=== PATIENT | female | born 1935 | race Caucasian/White ===

== ENCOUNTER → 2016-09-23 | Outpatient (CLI) | payer MEDICARE, BC ==
[~2016-09-23] MED LIST: ACET325T14 PO; ACID1TAB7 PO; ALBU2.5V11 NPPB; ALBU8.5H3 INH; ALPR0.25 PO; ASPI-515 PO; ATOR40TA PO; BUSP5TAB2 PO; CEFD300C37 PO; DIPH25CA61 PO; DOXY100C PO; DOXY100T PO; FAMO-79 PO; FAMO40TA4 PO; FLUT16SP NAS; FLUT1DIS3 INH; FLUT1DIS5 IH; GABA300C10 PO; HYDR-3240 PO; HYDR-3307 PO; IBUP100T9 PO; METH750T87 PO; NYST5000 PO; ONDA4SOL2 IV; PIPE3.378 IVPB; PRED20TA PO; RIVA15TA PO; RIVA20TA PO; ROSU20TA PO; SENN-31 PO; TRAM50TA2 PO; VANC1FRO IVPB
== END | disposition home or self-care (01) ==
LOC: PETCFH 13:11
PROVIDERS: ATTEND Nurse Practitioner
DX: J43.2 Centrilobular emphysema (principal); R91.1 Solitary pulmonary nodule; J98.4 Other disorders of lung
CPT/HCPCS: 78815; A9552

== ENCOUNTER 2017-04-22 09:10 | Inpatient (IN) | payer MEDICARE, BC ==
[~2017-04-22] VITALS: Ht 149.9 cm; Wt 55.9 kg
[~2017-04-22 09:10] MED LIST changes: -ALBU8.5H3 INH; +ALBU8.5H8 INH
[2017-04-22] MEDS ORDERED: APIX5TAB PO (10:13)
[2017-04-22] MEDS ORDERED: LORA10TA62 PO (10:13)
[2017-04-22] MEDS ORDERED: SODIUM CHLORIDE FLUSH 10ML SYR IVF ONE (10:30)
[2017-04-22 10:50] LABS: BASOPHILS # (AUTO) 0.14 x10^3/uL (0-0.1); BASOPHILS % (AUTO) 1 % (0-1); EOSINOPHILS # (AUTO) 0.23 x10^3/uL (0-0.4); EOSINOPHILS % (AUTO) 2 % (1-7); LYMPHOCYTES # (AUTO) 1.86 x10^3/uL (1-3.4); LYMPHOCYTES % (AUTO) 15 % (22-44); MD NO; MEAN CORPUSCULAR HEMOGLOBIN 22.7 pg (27.0-34.8); MEAN CORPUSCULAR HGB CONC 31.1 g/dL (32.4-35.8); MEAN PLATELET VOLUME 9.3 fL (7.4-10.4); MONOCYTES # (AUTO) 1.02 x10^3/uL (0.2-0.8); MONOCYTES % (AUTO) 8 % (2-9); NEUTROPHILS # (AUTO) 9.24 x10^3/uL (1.8-6.8); NEUTROPHILS % (AUTO) 74 % (42-75); PLATELET COUNT 356 x10^3/uL (130-400); RED BLOOD COUNT 5.62 x10^6/uL (3.82-5.3)
[2017-04-22 11:02] LABS: ALBUMIN 2.9 g/dL (3.4-5.0); ANION GAP 12 mmol/L (5-15); CALCIUM 9.7 mg/dL (8.5-10.1); CHLORIDE 106 mmol/L (98-107); CREATININE 1.21 mg/dL (0.55-1.02); D-DIMER 2.59 ug/mlFEU (0.00-0.52); INTERNATIONAL NORMALIZED RATIO 2.21 (0.93-1.1); PROTHROMBIN TIME 22.4 Seconds (9.6-11.5)
[2017-04-22] MEDS ORDERED: OMNIPAQUE 350 MG/ML, 100ML BOTTLE ONE (11:49)
[2017-04-22] MEDS ORDERED: SODIUM CHLORIDE FLUSH 10ML SYR IVF PRN (13:30)
[2017-04-22] MEDS ORDERED: NS + 20MEQ KCL 1,000 ML IV SCH (13:43)
[2017-04-22] MEDS ORDERED: DOCUSATE 100 MG CAPSULE PO PRN (14:00)
[2017-04-22] MEDS ORDERED: POLYETHYLENE GLYCOL 17 GM PACKET PO PRN (14:00)
[2017-04-22] MEDS ORDERED: FLUTICASONE NASAL SPRAY 16GM NAS PRN (14:00)
[2017-04-22] MEDS ORDERED: GUAIFENESIN/DM 200-20MG, 10ML UDC PO PRN (14:00)
[2017-04-22] MEDS ORDERED: ALBUTEROL HFA 90 MCG/SPRAY HOMEINH PRN (14:00)
[2017-04-22] MEDS ORDERED: ONDANSETRON 2MG/ML, 2ML IVPush PRN (14:00)
[2017-04-22] MEDS ORDERED: ALBUTEROL/IPRATROPIUM 2.5MG/0.5MG, 3 ML ONE (15:14)
[2017-04-22] MEDS ORDERED: ALBUTEROL/IPRATROPIUM 2.5MG/0.5MG, 3 ML NPPB PRN (15:30)
[2017-04-22 15:33] VITALS: BP 132/77
[2017-04-22] MEDS: methylPREDNISolone SOD SUCC 125 MG/2 ML IVPush SCH (16:06)
[2017-04-22 18:46] VITALS: BP 125/81
[2017-04-22] MEDS: CEFTRIAXONE PMX 1GM/50ML 50 ML IV SCH (19:32)
[2017-04-22] MEDS: ALBUTEROL/IPRATROPIUM 2.5MG/0.5MG, 3 ML NPPB SCH (20:19)
[2017-04-22] MEDS: SALMETEROL IH SCH (20:58)
[2017-04-22] MEDS: APIXABAN 5 MG TABLET PO SCH (20:58)
[2017-04-22] MEDS: DOXYCYCLINE 100 MG in DEXTROSE 5% 250 ML IV SCH ×2 (20:58→21:30)
[2017-04-22] MEDS: FLUTICASONE IH SCH (20:58)
[2017-04-23 00:30] VITALS: BP 146/81
[2017-04-23] MEDS: methylPREDNISolone SOD SUCC 125 MG/2 ML IVPush SCH ×3 (00:36→17:06)
[2017-04-23 06:10] LABS: CHLORIDE 105 mmol/L (98-107)
[2017-04-23 06:15] LABS: ANION GAP 8 mmol/L (5-15); CALCIUM 9.1 mg/dL (8.5-10.1); CREATININE 0.94 mg/dL (0.55-1.02)
[2017-04-23 06:35] VITALS: BP 117/61
[2017-04-23] MEDS: ALBUTEROL/IPRATROPIUM 2.5MG/0.5MG, 3 ML NPPB SCH ×2 (06:40→10:20)
[2017-04-23] MEDS ORDERED: LORATADINE 10 MG TABLET PO PRN (09:00)
[2017-04-23] MEDS: FAMOTIDINE 40 MG TABLET PO SCH (09:09)
[2017-04-23] MEDS: APIXABAN 5 MG TABLET PO SCH ×2 (09:09→21:18)
[2017-04-23] MEDS: SENNA/DOCUSATE TABLET PO SCH (09:12)
[2017-04-23] MEDS: DOXYCYCLINE 100 MG in DEXTROSE 5% 250 ML IV SCH ×2 (10:09→21:18)
[2017-04-23 12:09] VITALS: BP 119/79
[2017-04-23] MEDS: FLUTICASONE IH SCH (12:10)
[2017-04-23] MEDS: SALMETEROL IH SCH (12:10)
[2017-04-23] MEDS ORDERED: ACETAMINOPHEN 325 MG TABLET PO ONE (13:30)
[2017-04-23] MEDS ORDERED: DIPHENHYDRAMINE 25 MG CAPSULE PO ONE (13:30)
[2017-04-23] MEDS: FLUTICASONE/VILANTEROL 200-25MCG/INH INH SCH (13:52)
[2017-04-23] MEDS: ALBUTEROL SULFATE 2.5 MG/3 ML NPPB SCH ×2 (14:50→20:20)
[2017-04-23] MEDS: LORazepam 1MG TABLET PO PRN (15:37)
[2017-04-23] MEDS: CEFTRIAXONE PMX 1GM/50ML 50 ML IV SCH (17:06)
[2017-04-23 19:23] VITALS: BP 123/79
[2017-04-23] MEDS ORDERED: DIPHENHYDRAMINE 50 MG CAPSULE PO ONE (23:00)
[2017-04-24] MEDS: methylPREDNISolone SOD SUCC 125 MG/2 ML IVPush SCH ×3 (00:54→16:21)
[2017-04-24 01:28] VITALS: BP 125/69
[2017-04-24 06:35] VITALS: BP 161/89
[2017-04-24] MEDS: ALBUTEROL SULFATE 2.5 MG/3 ML NPPB SCH ×2 (07:09→11:33)
[2017-04-24] MEDS ORDERED: FLUTICASONE/VILANTEROL 200-25MCG/INH INH SCH (09:00)
[2017-04-24] MEDS: DOXYCYCLINE 100 MG in DEXTROSE 5% 250 ML IV SCH (09:00)
[2017-04-24] MEDS: FAMOTIDINE 40 MG TABLET PO SCH (09:03)
[2017-04-24] MEDS: APIXABAN 5 MG TABLET PO SCH ×2 (09:03→20:17)
[2017-04-24] MEDS: FLUTICASONE/VILANTEROL 200-25MCG/INH INH SCH (09:03)
[2017-04-24] MEDS: SENNA/DOCUSATE TABLET PO SCH (09:04)
[2017-04-24] MEDS ORDERED: BUSPIRONE 5 MG TABLET PO PRN (10:30)
[2017-04-24] MEDS: AZITHROMYCIN 500 MG TABLET PO SCH (11:28)
[2017-04-24 12:18] VITALS: BP 126/81
[2017-04-24] MEDS: CEFTRIAXONE PMX 1GM/50ML 50 ML IV SCH (16:21)
[2017-04-24 20:24] VITALS: BP 115/79
[2017-04-24] MEDS: DIPHENHYDRAMINE 50 MG CAPSULE PO PRN (22:12)
[2017-04-25 00:56] VITALS: BP 125/74
[2017-04-25] MEDS: methylPREDNISolone SOD SUCC 125 MG/2 ML IVPush SCH ×3 (01:39→17:14)
[2017-04-25 07:53] VITALS: BP 143/93
[2017-04-25] MEDS: APIXABAN 5 MG TABLET PO SCH ×2 (09:14→20:12)
[2017-04-25] MEDS: SENNA/DOCUSATE TABLET PO SCH (09:14)
[2017-04-25] MEDS: FLUTICASONE/VILANTEROL 200-25MCG/INH INH SCH (09:14)
[2017-04-25] MEDS: FAMOTIDINE 40 MG TABLET PO SCH (09:14)
[2017-04-25] MEDS: AZITHROMYCIN 500 MG TABLET PO SCH (09:14)
[2017-04-25] MEDS: DIPHENHYDRAMINE 50 MG CAPSULE PO PRN (10:56)
[2017-04-25 13:34] VITALS: BP 151/91
[2017-04-25] MEDS ORDERED: ALBUTEROL SULFATE 2.5 MG/3 ML NPPB PRN (15:00)
[2017-04-25] MEDS: CEFTRIAXONE PMX 1GM/50ML 50 ML IV SCH (17:14)
[2017-04-25 18:28] VITALS: BP 135/86
[2017-04-26 00:26] VITALS: BP 111/73
[2017-04-26] MEDS: methylPREDNISolone SOD SUCC 125 MG/2 ML IVPush SCH ×3 (00:47→17:44)
[2017-04-26 06:40] VITALS: BP 131/86
[2017-04-26] MEDS: AZITHROMYCIN 500 MG TABLET PO SCH (09:16)
[2017-04-26] MEDS: SENNA/DOCUSATE TABLET PO SCH (09:16)
[2017-04-26] MEDS: APIXABAN 5 MG TABLET PO SCH ×2 (09:16→20:51)
[2017-04-26] MEDS: FAMOTIDINE 40 MG TABLET PO SCH (09:16)
[2017-04-26] MEDS: FLUTICASONE/VILANTEROL 200-25MCG/INH INH SCH (09:16)
[2017-04-26 11:27] LABS: MICROSCOPIC AUTO
[2017-04-26 11:30] LABS: CULTURE INDICATED? NO
[2017-04-26 12:05] VITALS: BP 118/67
[2017-04-26] MEDS: DIPHENHYDRAMINE 50 MG CAPSULE PO PRN (16:25)
[2017-04-26] MEDS: CEFTRIAXONE PMX 1GM/50ML 50 ML IV SCH (16:25)
[2017-04-26 19:19] VITALS: BP 153/98
[2017-04-27 02:26] VITALS: BP 135/84
[2017-04-27] MEDS: methylPREDNISolone SOD SUCC 125 MG/2 ML IVPush SCH ×2 (02:43→09:36)
[2017-04-27 05:26] LABS: MEAN CORPUSCULAR HEMOGLOBIN 22.9 pg (27.0-34.8); MEAN CORPUSCULAR HGB CONC 31.6 g/dL (32.4-35.8); MEAN CORPUSCULAR VOLUME 72.4 fL (80-100); MEAN PLATELET VOLUME 9.8 fL (7.4-10.4); PLATELET COUNT 266 x10^3/uL (130-400); RED BLOOD COUNT 5.23 x10^6/uL (3.82-5.3); RED CELL DISTRIBUTION WIDTH 19.3 % (9.6-15.2)
[2017-04-27 05:39] LABS: CALCIUM 9.1 mg/dL (8.5-10.1); CREATININE 0.91 mg/dL (0.55-1.02)
[2017-04-27 05:48] LABS: ANION GAP 7 mmol/L (5-15); CHLORIDE 107 mmol/L (98-107)
[2017-04-27 05:51] LABS: ANISOCYTOSIS 1+; BASOPHILS % (AUTO) 0 % (0-1); EOSINOPHILS % (AUTO) 0 % (1-7); HYPOCHROMIA 2+; LYMPHOCYTES # (AUTO) 0.44 x10^3/uL (1-3.4); LYMPHOCYTES % (AUTO) 3 % (22-44); MD MORPH REVIEW ONLY; MICROCYTOSIS 2+; MONOCYTES # (AUTO) 0.74 x10^3/uL (0.2-0.8); MONOCYTES % (AUTO) 5 % (2-9); NEUTROPHILS % (AUTO) 93 % (42-75); OVALOCYTES 2+
[2017-04-27 05:53] LABS: <PLATELET ESTIMATE> ADEQUATE; <PLT MORPHOLOGY> NORMAL PLT MORPH
[2017-04-27 06:48] VITALS: BP 158/99
[2017-04-27] MEDS: FLUTICASONE/VILANTEROL 200-25MCG/INH INH SCH (09:33)
[2017-04-27] MEDS: SENNA/DOCUSATE TABLET PO SCH (09:33)
[2017-04-27] MEDS: AZITHROMYCIN 500 MG TABLET PO SCH (09:34)
[2017-04-27] MEDS: APIXABAN 5 MG TABLET PO SCH ×2 (09:36→21:21)
[2017-04-27] MEDS: FAMOTIDINE 40 MG TABLET PO SCH (09:36)
[2017-04-27 12:23] VITALS: BP 150/87
[2017-04-27 20:15] VITALS: BP 145/83
[2017-04-28 01:23] VITALS: BP 154/97
[2017-04-28 05:22] LABS: BASOPHILS % (AUTO) 0 % (0-1); EOSINOPHILS # (AUTO) 0.01 x10^3/uL (0-0.4); EOSINOPHILS % (AUTO) 0 % (1-7); LYMPHOCYTES # (AUTO) 0.94 x10^3/uL (1-3.4); LYMPHOCYTES % (AUTO) 5 % (22-44); MD NO; MEAN CORPUSCULAR HEMOGLOBIN 22.5 pg (27.0-34.8); MEAN CORPUSCULAR HGB CONC 31.2 g/dL (32.4-35.8); MEAN CORPUSCULAR VOLUME 72.2 fL (80-100); MEAN PLATELET VOLUME 9.6 fL (7.4-10.4); MONOCYTES # (AUTO) 1.39 x10^3/uL (0.2-0.8); MONOCYTES % (AUTO) 7 % (2-9); NEUTROPHILS % (AUTO) 88 % (42-75); PLATELET COUNT 304 x10^3/uL (130-400); RED CELL DISTRIBUTION WIDTH 19.3 % (9.6-15.2)
[2017-04-28 05:34] LABS: CHLORIDE 108 mmol/L (98-107)
[2017-04-28 05:40] LABS: ANION GAP 6 mmol/L (5-15); CALCIUM 8.9 mg/dL (8.5-10.1); CREATININE 0.77 mg/dL (0.55-1.02)
[2017-04-28 06:49] VITALS: BP 142/90
[2017-04-28] MEDS: predniSONE 50MG TABLET PO SCH (07:20)
[2017-04-28] MEDS: FAMOTIDINE 40 MG TABLET PO SCH (08:57)
[2017-04-28] MEDS: SENNA/DOCUSATE TABLET PO SCH (08:57)
[2017-04-28] MEDS: APIXABAN 5 MG TABLET PO SCH ×2 (08:57→19:49)
[2017-04-28] MEDS: FLUTICASONE/VILANTEROL 200-25MCG/INH INH SCH (08:57)
[2017-04-28] MEDS ORDERED: AZITHROMYCIN 500 MG TABLET PO SCH (09:00)
[2017-04-28 10:06] LABS: ALANINE AMINOTRANSFERASE 119 U/L (12-78); ALBUMIN 3.1 g/dL (3.4-5.0); ANION GAP 7 mmol/L (5-15); CALCIUM 8.9 mg/dL (8.5-10.1); CHLORIDE 107 mmol/L (98-107); CREATININE 0.81 mg/dL (0.55-1.02)
[2017-04-28 10:09] LABS: ALKALINE PHOSPHATASE 161 U/L (45-117); BILIRUBIN,TOTAL 0.9 mg/dL (0.2-1.0); TOTAL PROTEIN 6.7 g/dL (6.4-8.2)
[2017-04-28 14:13] VITALS: BP 113/76
[2017-04-28] MEDS: CEFTRIAXONE PMX 1GM/50ML 50 ML IV SCH (18:24)
[2017-04-28] MEDS: METRONIDAZOLE PMX 500MG/100ML 100 ML IV SCH (19:49)
[2017-04-28] MEDS: LORazepam 1MG TABLET PO PRN (19:50)
[2017-04-28 21:23] VITALS: BP 138/90
[2017-04-29 03:49] VITALS: BP 150/97
[2017-04-29] MEDS: LORazepam 1MG TABLET PO PRN (04:14)
[2017-04-29] MEDS: METRONIDAZOLE PMX 500MG/100ML 100 ML IV SCH ×3 (04:14→20:07)
[2017-04-29 06:38] VITALS: BP 164/98
[2017-04-29] MEDS: FAMOTIDINE 40 MG TABLET PO SCH (09:04)
[2017-04-29] MEDS: APIXABAN 5 MG TABLET PO SCH (09:04)
[2017-04-29] MEDS: SENNA/DOCUSATE TABLET PO SCH (09:04)
[2017-04-29] MEDS: predniSONE 50MG TABLET PO SCH (09:04)
[2017-04-29] MEDS: FLUTICASONE/VILANTEROL 200-25MCG/INH INH SCH (09:05)
[2017-04-29] MEDS ORDERED: hydrALAzine 20 MG/ML, 1ML IV PRN (12:30)
[2017-04-29 12:41] VITALS: BP 115/78
[2017-04-29 17:55] LABS: TUBERCULIN 48 HOUR READ 0 mm (< 5)
[2017-04-29] MEDS: CEFTRIAXONE PMX 1GM/50ML 50 ML IV SCH (18:02)
[2017-04-29 19:49] VITALS: BP 133/80
[2017-04-30 00:47] VITALS: BP 146/89
[2017-04-30] MEDS: METRONIDAZOLE PMX 500MG/100ML 100 ML IV SCH (04:02)
[2017-04-30 05:49] LABS: MEAN CORPUSCULAR HEMOGLOBIN 22.4 pg (27.0-34.8); MEAN CORPUSCULAR HGB CONC 31.3 g/dL (32.4-35.8); MEAN CORPUSCULAR VOLUME 71.7 fL (80-100); MEAN PLATELET VOLUME 9.6 fL (7.4-10.4); PLATELET COUNT 320 x10^3/uL (130-400); RED BLOOD COUNT 5.36 x10^6/uL (3.82-5.3); RED CELL DISTRIBUTION WIDTH 19.2 % (9.6-15.2)
[2017-04-30 06:07] LABS: CHLORIDE 108 mmol/L (98-107)
[2017-04-30 06:13] LABS: MD YES
[2017-04-30 06:15] LABS: LYMPH#(MANUAL) 1.89 x10^3/uL (1-3.4); LYMPHS% (MANUAL) 9 % (22-44); MONOS#(MANUAL) 1.68 x10^3/uL (0.3-2.7); MONOS% (MANUAL) 8 % (2-9); NRBC % (MANUAL) 1 % (0-1); REACTIVE LYMPHS # (MANUAL) 0.21 x10^3/uL (0-0); REACTIVE LYMPHS % (MANUAL) 1 % (0-0); SEG#(MANUAL) 17.22 x10^3/uL (1.8-6.8); SEGS% (MANUAL) 82 % (42-75)
[2017-04-30 06:16] LABS: ANISOCYTOSIS 1+
[2017-04-30 06:17] LABS: HYPOCHROMIA 2+; MICROCYTOSIS 1+; OVALOCYTES 1+; POLYCHROMASIA 1+
[2017-04-30 06:18] LABS: ALANINE AMINOTRANSFERASE 112 U/L (12-78); ALBUMIN 2.5 g/dL (3.4-5.0); ALKALINE PHOSPHATASE 138 U/L (45-117); ANION GAP 6 mmol/L (5-15); CALCIUM 8.3 mg/dL (8.5-10.1); CREATININE 0.66 mg/dL (0.55-1.02); TOTAL PROTEIN 5.6 g/dL (6.4-8.2)
[2017-04-30 06:19] LABS: <PLATELET ESTIMATE> ADEQUATE; <PLT MORPHOLOGY> NORMAL PLT MORPH
[2017-04-30 07:09] VITALS: BP 160/80
[2017-04-30] MEDS: SENNA/DOCUSATE TABLET PO SCH (09:05)
[2017-04-30] MEDS: FAMOTIDINE 40 MG TABLET PO SCH (09:05)
[2017-04-30] MEDS: FLUTICASONE/VILANTEROL 200-25MCG/INH INH SCH (09:05)
[2017-04-30 12:32] VITALS: BP 127/80
[2017-04-30 18:40] VITALS: BP 129/90
[2017-04-30] MEDS: DIPHENHYDRAMINE 50 MG CAPSULE PO PRN (21:00)
[2017-05-01 02:20] VITALS: BP 142/90
[2017-05-01 07:09] VITALS: BP 146/89
[2017-05-01] MEDS: FAMOTIDINE 40 MG TABLET PO SCH (09:07)
[2017-05-01] MEDS: FLUTICASONE/VILANTEROL 200-25MCG/INH INH SCH (09:07)
[2017-05-01] MEDS: SENNA/DOCUSATE TABLET PO SCH (09:07)
[2017-05-01] MEDS ORDERED: FUROSEMIDE 20 MG/2 ML IV ONE (10:30)
[2017-05-01 13:18] VITALS: BP 138/82
[2017-05-01] MEDS: DIPHENHYDRAMINE 50 MG CAPSULE PO PRN (20:00)
[2017-05-01 20:03] VITALS: BP 118/78
[2017-05-02 02:30] VITALS: BP 128/81
[2017-05-02] MEDS: FAMOTIDINE 40 MG TABLET PO SCH (09:57)
[2017-05-02] MEDS: FLUTICASONE/VILANTEROL 200-25MCG/INH INH SCH (09:57)
[2017-05-02] MEDS: SENNA/DOCUSATE TABLET PO SCH (09:58)
[2017-05-02 09:59] VITALS: BP 101/79
[2017-05-02] MEDS ORDERED: LORazepam 1MG TABLET PO PRN (12:30)
[2017-05-02] MEDS: APIXABAN 5 MG TABLET PO SCH ×2 (14:44→20:45)
[2017-05-02 14:45] VITALS: BP 95/63
[2017-05-02 18:46] VITALS: BP 115/75
[2017-05-02] MEDS: DIPHENHYDRAMINE 50 MG CAPSULE PO PRN (20:45)
[2017-05-03 00:05] VITALS: BP 101/72
[2017-05-03 07:47] VITALS: BP 127/84
[2017-05-03] MEDS: FAMOTIDINE 40 MG TABLET PO SCH (08:28)
[2017-05-03] MEDS: SENNA/DOCUSATE TABLET PO SCH (08:28)
[2017-05-03] MEDS: APIXABAN 5 MG TABLET PO SCH ×2 (08:28→20:58)
[2017-05-03] MEDS: FLUTICASONE/VILANTEROL 200-25MCG/INH INH SCH (08:28)
[2017-05-03] MEDS: FUROSEMIDE 20 MG TABLET PO SCH (10:06)
[2017-05-03 13:56] VITALS: BP 122/80
[2017-05-03 18:47] VITALS: BP 129/75
[2017-05-03] MEDS: DIPHENHYDRAMINE 50 MG CAPSULE PO PRN (22:01)
[2017-05-04 01:58] VITALS: BP 118/72
[2017-05-04 08:00] VITALS: BP 130/72
[2017-05-04] MEDS: SENNA/DOCUSATE TABLET PO SCH (09:00)
[2017-05-04] MEDS: APIXABAN 5 MG TABLET PO SCH (09:27)
[2017-05-04] MEDS: FUROSEMIDE 20 MG TABLET PO SCH (09:27)
[2017-05-04] MEDS: FAMOTIDINE 40 MG TABLET PO SCH (09:27)
[2017-05-04] MEDS: FLUTICASONE/VILANTEROL 200-25MCG/INH INH SCH (09:27)
[2017-05-04 14:00] VITALS: BP 115/76
[2017-05-04 18:34] VITALS: BP 118/73
[2017-05-05 00:50] VITALS: BP 109/77
[2017-05-05 06:31] VITALS: BP 128/85
[2017-05-05] MEDS: FLUTICASONE/VILANTEROL 200-25MCG/INH INH SCH (08:17)
[2017-05-05] MEDS: SENNA/DOCUSATE TABLET PO SCH (08:17)
[2017-05-05] MEDS: FUROSEMIDE 20 MG TABLET PO SCH (08:17)
[2017-05-05 13:11] VITALS: BP 127/55
[2017-05-05 20:16] VITALS: BP 127/85
[2017-05-06 01:25] VITALS: BP 153/93
[2017-05-06 07:28] VITALS: BP 146/83
[2017-05-06] MEDS: FLUTICASONE/VILANTEROL 200-25MCG/INH INH SCH (09:46)
[2017-05-06] MEDS: SENNA/DOCUSATE TABLET PO SCH (09:47)
[2017-05-06] MEDS: FUROSEMIDE 20 MG TABLET PO SCH (09:47)
[2017-05-06 13:30] VITALS: BP 141/82
[2017-05-06 20:36] VITALS: BP 125/77
[2017-05-07 03:33] VITALS: BP 140/85
[2017-05-07 06:44] VITALS: BP 154/89
[2017-05-07] MEDS: FLUTICASONE/VILANTEROL 200-25MCG/INH INH SCH (11:06)
[2017-05-07] MEDS: SENNA/DOCUSATE TABLET PO SCH (11:07)
[2017-05-07] MEDS: FUROSEMIDE 20 MG TABLET PO SCH (11:08)
[2017-05-07 12:08] VITALS: BP 114/73
[2017-05-07 18:33] VITALS: BP 114/73
[2017-05-07] MEDS: DIPHENHYDRAMINE 50 MG CAPSULE PO PRN (21:00)
[2017-05-08 02:45] VITALS: BP 134/76
[2017-05-08 06:29] VITALS: BP 131/84
[2017-05-08] MEDS: SENNA/DOCUSATE TABLET PO SCH (10:21)
[2017-05-08] MEDS: FUROSEMIDE 20 MG TABLET PO SCH (10:21)
[2017-05-08] MEDS: FLUTICASONE/VILANTEROL 200-25MCG/INH INH SCH (10:21)
[2017-05-08 12:03] VITALS: BP 122/76
[2017-05-08 19:19] VITALS: BP 138/72
[2017-05-08] MEDS: DIPHENHYDRAMINE 50 MG CAPSULE PO PRN (19:27)
[2017-05-09 02:14] VITALS: BP 133/83
[2017-05-09 07:31] VITALS: BP 132/81
[2017-05-09] MEDS: SENNA/DOCUSATE TABLET PO SCH (09:00)
[2017-05-09] MEDS: FLUTICASONE/VILANTEROL 200-25MCG/INH INH SCH (09:46)
[2017-05-09] MEDS: FUROSEMIDE 20 MG TABLET PO SCH (09:47)
[2017-05-09] MEDS: DIPHENHYDRAMINE 50 MG CAPSULE PO PRN (09:47)
[2017-05-09 12:11] VITALS: BP 120/77
[2017-05-09] MEDS: DIPHENHYDRAMINE/ZINC CRM 2%, 30GM TP PRN (17:43)
[2017-05-09 18:12] VITALS: BP 129/81
[2017-05-10 01:36] VITALS: BP 144/83
[2017-05-10 07:49] VITALS: BP 133/85
[2017-05-10] MEDS: FLUTICASONE/VILANTEROL 200-25MCG/INH INH SCH (09:25)
[2017-05-10] MEDS: FUROSEMIDE 20 MG TABLET PO SCH (09:25)
[2017-05-10] MEDS: DIPHENHYDRAMINE/ZINC CRM 2%, 30GM TP PRN ×2 (09:25→20:48)
[2017-05-10] MEDS: SENNA/DOCUSATE TABLET PO SCH (09:25)
[2017-05-10 13:20] VITALS: BP 125/77
[2017-05-10 19:08] VITALS: BP 138/78
[2017-05-11 02:00] VITALS: BP 126/77
[2017-05-11 07:59] VITALS: BP 128/87
[2017-05-11] MEDS: FUROSEMIDE 20 MG TABLET PO SCH (07:59)
[2017-05-11] MEDS: DIPHENHYDRAMINE/ZINC CRM 2%, 30GM TP PRN ×3 (07:59→19:48)
[2017-05-11] MEDS: FLUTICASONE/VILANTEROL 200-25MCG/INH INH SCH (07:59)
[2017-05-11] MEDS: SENNA/DOCUSATE TABLET PO SCH (07:59)
[2017-05-11 13:52] VITALS: BP 110/71
[2017-05-11 19:05] VITALS: BP 111/60
[2017-05-12 02:07] VITALS: BP 117/78
[2017-05-12 06:42] VITALS: BP 129/77
[2017-05-12] MEDS: FLUTICASONE/VILANTEROL 200-25MCG/INH INH SCH (09:22)
[2017-05-12] MEDS: FUROSEMIDE 20 MG TABLET PO SCH (09:23)
[2017-05-12] MEDS: DIPHENHYDRAMINE/ZINC CRM 2%, 30GM TP PRN ×2 (09:23→20:15)
[2017-05-12] MEDS: SENNA/DOCUSATE TABLET PO SCH (09:23)
[2017-05-12 12:27] VITALS: BP 118/78
[2017-05-12 18:37] VITALS: BP 131/78
[2017-05-13 03:46] VITALS: BP 129/82
[2017-05-13 06:39] VITALS: BP 118/74
[2017-05-13] MEDS: FUROSEMIDE 20 MG TABLET PO SCH (08:09)
[2017-05-13] MEDS: FLUTICASONE/VILANTEROL 200-25MCG/INH INH SCH (08:09)
[2017-05-13] MEDS: SENNA/DOCUSATE TABLET PO SCH (08:09)
[2017-05-13 12:32] VITALS: BP 115/72
[2017-05-13 19:55] VITALS: BP 120/79
[2017-05-14 01:45] VITALS: BP 148/89
[2017-05-14 06:44] VITALS: BP 129/79
[2017-05-14] MEDS ORDERED: FLUT1BLS INH (07:08)
[2017-05-14] MEDS ORDERED: SENN1TAB7 PO (07:08)
[2017-05-14] MEDS ORDERED: ALBU2.5V NPPB (07:08)
[2017-05-14] MEDS ORDERED: BUSP5TAB2 PO (07:08)
[2017-05-14] MEDS ORDERED: DIPH28CR5 TP (07:08)
[2017-05-14] MEDS ORDERED: DOCU-131 PO (07:08)
[2017-05-14] MEDS ORDERED: FLUT16SP NAS (07:08)
[2017-05-14] MEDS ORDERED: POLY17PO5 PO (07:08)
[2017-05-14] MEDS ORDERED: DIPH50CA PO (07:08)
[2017-05-14] MEDS ORDERED: TRAM50TA2 PO (07:08)
[2017-05-14] MEDS ORDERED: LORA10TA75 PO (07:08)
[2017-05-14] MEDS ORDERED: GUAI5SYR PO (07:08)
[2017-05-14] MEDS ORDERED: LORA-446 PO (07:08)
[2017-05-14] MEDS ORDERED: FURO20TA3 PO (07:08)
[2017-05-14] MEDS ORDERED: FUROSEMIDE 40 MG TABLET ONE (09:42)
[2017-05-14] MEDS: DIPHENHYDRAMINE/ZINC CRM 2%, 30GM TP PRN (09:45)
[2017-05-14] MEDS: FLUTICASONE/VILANTEROL 200-25MCG/INH INH SCH (09:45)
[2017-05-14] MEDS: SENNA/DOCUSATE TABLET PO SCH (09:48)
[2017-05-14] MEDS: FUROSEMIDE 20 MG TABLET PO SCH (09:48)
== END 2017-05-14 10:30 | disposition hospice, home (50) | DRG 682 ==
LOC: ED 13:05 → EDIP 13:06 → ED 13:18 → 3NE 14:00
PROVIDERS: ADMIT Internal Medicine; ATTEND Internal Medicine
PROC: 0T9B70Z Drainage of Bladder with Drainage Device, Via Natural or Artificial Opening (ICD-10-PCS; principal; 2017-04-22)
DX: N17.0 Acute kidney failure with tubular necrosis (principal); J96.21 Acute and chronic respiratory failure with hypoxia; E43 Unspecified severe protein-calorie malnutrition; D68.69 Other thrombophilia; E86.0 Dehydration; I27.82 Chronic pulmonary embolism; J44.1 Chronic obstructive pulmonary disease with (acute) exacerbation; Z99.81 Dependence on supplemental oxygen; E78.5 Hyperlipidemia, unspecified; D72.829 Elevated white blood cell count, unspecified; R21 Rash and other nonspecific skin eruption; K59.00 Constipation, unspecified; G83.89 Other specified paralytic syndromes; F41.9 Anxiety disorder, unspecified; I10 Essential (primary) hypertension; I25.10 Atherosclerotic heart disease of native coronary artery without angina pectoris; Z66 Do not resuscitate; Z51.5 Encounter for palliative care; Z79.899 Other long term (current) drug therapy; Z80.0 Family history of malignant neoplasm of digestive organs; Z80.1 Family history of malignant neoplasm of trachea, bronchus and lung; Z87.891 Personal history of nicotine dependence; Z68.24 Body mass index [BMI] 24.0-24.9, adult; Z79.01 Long term (current) use of anticoagulants; Z90.710 Acquired absence of both cervix and uterus; Z95.1 Presence of aortocoronary bypass graft; Z88.2 Allergy status to sulfonamides; Z88.6 Allergy status to analgesic agent
CPT/HCPCS: 36415; 71010; 71275; 74177; 78227; 80048; 80053; 81001; 82040; 83735; 85025; 85379; 85610; 85730; 86580; 87040; 93005; 94640; 99285; J0696; J2405; J3480; J7060; J7613; J7620; Q9967; A9537; C9898; J1940; J2930; J7512; Q0163